=== PATIENT | female | born 2000 | race Caucasian/White ===

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

== ENCOUNTER 2022-05-12 20:53 | Emergency (ER) | payer BC ==
--- OUTSIDE RECORDS SUMMARY | 2022-05-12 20:57 | XMS REPORT | Continuity of Care Document ---
:2000 Author Organization [facility] t Address [address] [place] [address] Care Team Providers Name Role Phone Kailey Peterson Primary Care Physician Jeremy Peralta MD Attending Clinician JEREMY PERALTA Attending Clinician Unavailable Doctor Unassigned, [place] Attending Clinician Unavailable Payers Payer Name Policy Type Policy Number Effective Date Expiration Date S ource Problems Condition Condition Condition Status Onset Resolution Last Treating Co mments Source Name Details Category Date Date Treatment Clinician Date Abnormal Abnormal Disease Active Unive rs weight weight 4-30 ity of gain gain 00:00: [place] 00 Medical Branch Overweight Overweight Disease Active U nivers peds (BMI peds (BMI 4-30 ity of 85-94.9 85-94.9 00:00: [place] percentile percentile 00 Me dical ) ) Branch Allergies, Adverse Reactions, Alerts Allergy Allergy Status Severity Reaction(s) Onset Inactive Treating Comm ents Source Name Type Date Date Clinician CEFACLOR DRUG Active Hives 2014-06 Univers INGREDI 2-15 ity of 00:00: [place] 00 Medical Branch Cefaclor Propensi Active Hives 2014-06 Univer s ty to 2-15 ity of adverse 00:00: [place] reaction 00 Medical s Branch Social History Social Habit Start Date Stop Date Quantity Comments Source Exposure to Not sure [facility] SARS-CoV-2 (event) Medica l Branch Tobacco use and 2021-02-22 2021-02-22 Never used [facility] [place] exposure 00:00:00 00:00:00 Medical Branch Sex Assigned At [birth year] [facility] 00:00:00 00:00:00 Medical Branch Smoking Status Start Date Stop Date Source Unknown if ever smoked [facility] Branch Never smoker [facility] Medications Ordered Filled Start Stop Current Ordering Indication Dosage Frequency Signature Comments Components Source Medication Medication Date Date Medication? Clinician (SIG) Name Name tony Yes [id number] 4[drp] Place 4 Univers in-dexameth -03 Drops in ity of asone 00:00: right ear [place] 0.3-0.1 % 00 2 (two) Medical otic drops times Branch daily. azelastine Yes [id number] 1{spray Use 1 Univers 137 mcg 02-22 } [place] in ity of (0.1 %) 00:00: each [place] nasal spray 00 nostril 2 Med ical (two) Branch times daily. Use in each nostril as directed dexmethylph 2017-0 Yes 10mg Take 10 mg Univers enidate 10 3-13 by mouth 2 ity of mg tablet 00:00: (two) [place] 00 times Medical daily. Branch SERTraline 0 Yes 25mg Take 25 mg U nivers 25 mg 3-13 by mouth ity of tablet 00:00: daily. [place] [facility] Branch dexmethylph 2018-0 Yes 10mg Take 10 mg Univers enidate 10 3-13 by mouth 2 ity of mg tablet 00:00: (two) [place] 00 times Medical daily. Branch SERTraline 2018-0 Yes 25mg Take 25 mg U nivers 25 mg 3-13 by mouth ity of tablet 00:00: daily. [place] [facility] Branch dexmethylph 2018-0 Yes 10mg Take 10 mg Univers enidate 10 3-13 by mouth 2 ity of mg tablet 00:00: (two) [place] 00 times Medical daily. Branch SERTraline 2018-0 Yes 25mg Take 25 mg U nivers 25 mg 3-13 by mouth ity of tablet 00:00: daily. [place] [facility] Branch dexmethylph 2018-0 Yes 10mg Take 10 mg Univers enidate 10 3-13 by mouth 2 ity of mg tablet 00:00: (two) [place] 00 times Medical daily. Branch SERTraline 2018-0 Yes 25mg Take 25 mg U nivers 25 mg 3-13 by mouth ity of tablet 00:00: daily. [address] dexmethylph 2018-0 Yes 10mg Take 10 mg Univers enidate 10 3-13 by mouth 2 ity of mg tablet 00:00: (two) [place] [id number] times Medical daily. Branch SERTraline 2017-0 Yes 25mg Take 25 mg U nivers 25 mg 3-13 by mouth ity of tablet 00:00: daily. [address] Vital Signs Vital Name Observation Time Observation Value Comments Source Systolic blood 2021-02-22 22:37:00 106 mm[Hg] Univer sity of pressure [facility] Diastolic blood 2021-02-22 22:37:00 71 mm[Hg] Unive rsity of [facility] Heart rate 2021-02-22 22:37:00 75 /min [facility] Body temperature 2021-02-22 22:37:00 36.72 [facility] Body height 2021-02-22 22:37:00 154.9 cm [facility] Body weight 2021-02-22 22:37:00 74.163 kg [facility] BMI 2021-02-22 22:37:00 30.89 kg/m2 [facility] Oxygen saturation in 2021-02-22 22:37:00 98 /min [facility] Arterial blood by [facility] Pulse oximetry Branch Procedures This patient has no known procedures. Encounters Start End Encounter Admission Attending Care Care Encounter Source Date/Time Date/Time Type Type Clinicians Facility Department ID 2021-02-22 2021-02-22 Lucian Peralta DEJASE [id number] Univers 17:27:58 17:54:14 Care Online Prasad [id number] it y of [place] [id number] Henri as Jc?Blea [phone] [place] [address] [facility] 2021-02-22 2021-02-22 Outpatient R FABIAN [facility] [id number] Univers 17:20:00 17:20:00 JEREMY [facility] 2021-02-22 2021-02-22 Letter Doctor AGUILAR [id number] Univers 00:00:00 00:00:00 (Out) Unassigned, VALERY [id number] ity of [place] [facility] [id number] Henri as [id number] [place] [address] Branch 2021-02-22 2021-02-22 Letter Doctor JEFF [id number] Univers 00:00:00 00:00:00 (Out) Unassigned, VALERY [id number] ity of [place] [facility] [id number] Henri as [phone] [place] [address] Branch Results This patient has no known results.
--- NOTE | 2022-05-12 21:55 | EDPHYS ---
Physician Documentation [facility] Name: Raymundo Bernabe Age: 21 yrs Sex: Female : 2000 Arrival Date: 05/12/2022 Time: 20:57 Bed 5 Private MD: ED Physician Santhosh Padilla HPI: 05/12 21:50 This 21 yrs old Female presents to ER via Ambulatory with complaints of Numbness Of cp Face, RT side, Eye Pain. 21:50 The patient's problem is reported as a facial droop, on right, paresthesias, in right cp side of face. Onset: The symptoms/episode began/occurred today, noticed about 3 pm. Duration: The episode is continuous. Context: the episode(s) was witnessed, by a significant other. Associated signs and symptoms: Pertinent positives: right eye discomfort, feels "dry". Patient's baseline: Neuro: alert and fully oriented, Motor: no deficits, Ambulation: walks without assistance, Speech: normal. Historical: - Allergies: 21:29 Ceclor; vc1 - Home Meds: 21:29 trazodone 50 mg Oral tab 1 tab nightly [Active]; duloxetine 30 mg oral CDRS 1 cap once vc1 daily [Active]; - PMHx: 21:29 scoliosis; ADHD; Depressive disorder; Anxiety; vc1 - PSHx: 21:29 None; vc1 - Immunization history:: Client reports having NOT received the Covid vaccine. - Social history:: Smoking status: Patient denies any tobacco usage or history of. ROS: 21:50 Constitutional: Negative for body aches, chills, fever, poor PO intake. cp 21:50 Eyes: Positive for of the right eye, "dryness", discomfort, Negative for discharge, cp redness. 21:50 ENT: Negative for drainage from ear(s), ear pain, sore throat, difficulty swallowing, difficulty handling secretions. 21:50 Cardiovascular: Negative for chest pain, edema, palpitations. 21:50 Respiratory: Negative for cough, shortness of breath, wheezing. 21:50 Abdomen/GI: Negative for abdominal pain, nausea, vomiting, and diarrhea. 21:50 Skin: Negative for rash. 21:50 Neuro: Positive for numbness, of the right side of face, Negative for altered mental status, headache. 21:50 All other systems are negative. Exam: 21:52 Constitutional: This is a well developed, well nourished patient who is awake, alert, cp and in no acute distress. 21:52 Head/face: Normocephalic, loss of facial line right side of forehead, right drooping eyelid and corner of mouth. 21:52 Eyes: Periorbital structures: appear normal, Pupils: equal, round, and reactive to cp light and accomodation, Extraocular movements: intact throughout, Conjunctiva: normal, no exudate, no injection, Sclera: no appreciated abnormality, Lids and lashes: no evidence of trauma, Visual hendrickson: are intact. 21:52 ENT: External ear(s): are unremarkable, Ear canal(s): are normal, clear, TM's: dullness, bilaterally, Nose: is normal, Mouth: Lips: moist, Oral mucosa: pink and intact, moist, Posterior pharynx: Airway: no evidence of obstruction, patent, Tonsils: are normal in appearance, swelling, is not appreciated, erythema, is not appreciated, exudate, is not appreciated. 21:52 Neck: ROM/movement: is normal, is supple, without pain, no range of motions limitations. 21:52 Chest/axilla: Inspection: normal. 21:52 Cardiovascular: Rate: normal, Rhythm: regular. 21:52 Respiratory: the patient does not display signs of respiratory distress, Respirations: normal, no use of accessory muscles, no retractions, labored breathing, is not present, Breath sounds: are clear throughout, no decreased breath sounds. 21:52 Abdomen/GI: Exam negative for discomfort, distension, guarding, Inspection: abdomen appears normal. 21:52 Skin: no rash present. cp 21:52 Neuro: Orientation: to person, place \\T\\ time. Mentation: is normal, Motor: moves all fours, strength is normal, Sensation: numbness, that is moderate, of the right side of face, Gait: is steady, at a normal pace, without difficulty. 21:52 CT study not indicated or reported. Reason for not performing CT: not medically cp necessary Vital Signs: 21:26 BP 134 / 92; Pulse 92; Resp 17; Temp 98.1; Pulse Ox 99% on R/A; Weight 81.65 kg; Height vc1 5 ft. 1 in. (154.94 cm); Pain 0/10; 21:26 Body Mass Index 34.01 (81.65 kg, 154.94 cm) vc1 MDM: 21:18 Patient medically screened. [facility] 21:54 Data reviewed: vital signs, nurses notes. cp 21:54 Differential diagnosis: CVA, TIA, paralysis, metabolic disorder, drug effects. cp Counseling: I had a detailed discussion with the patient and/or guardian regarding: the historical points, exam findings, and any diagnostic results supporting the discharge/admit diagnosis, the need for outpatient follow up, a neurologist, to return to the emergency department if symptoms worsen or persist or if there are any questions or concerns that arise at home. 05/12 21:56 Order name: Urine --Ancillary (enter results) [facility] 05/12 21:57 Order name: Urine Dipstick-Ancillary [facility] 05/12 21:46 Order name: Urine Test (obtain specimen); Complete Time: 21:56 cp 05/12 21:46 Order name: Urine Dipstick-Ancillary (obtain specimen); Complete Time: 21:56 cp Administered Medications: No medications were administered Disposition Summary: 05/12/22 21:54 Discharge Ordered Location: Home cp Problem: new cp Symptoms: are unchanged cp Condition: Stable cp Diagnosis - Luna's palsy cp Followup: cp - With: Ganesh Ramachandran MD - When: 2 - 3 days - Reason: Recheck today's complaints Discharge Instructions: - Discharge Summary Sheet cp - Luna Palsy, Adult cp Forms: - Medication Reconciliation Form cp - Thank You Letter cp - Antibiotic Education cp - Prescription Opioid Use cp Prescriptions: - Prednisone 20 mg Oral Tablet - take 3 tablets by ORAL route once daily for 10 days then take 2 tabs daily for cp 3 days and then 1 tab daily for 2 days; 23 tablet; Refills: 0, Product Selection Permitted - Acyclovir 400 mg Oral Tablet - take 1 tablet by ORAL route every 8 hours for 10 days; 50 tablet; Refills: 0, cp Product Selection Permitted - Artificial Eye Lubricant - apply 1 application by OPHTHALMIC route every 2-4 hours As needed; 1 bottle; cp Refills: 0, Product Selection Permitted Signatures: Dispatcher [employer] EDMS Randy, Santhosh, MD MD sarah Page, Santhosh, PA PA cp Calcote, Lilia, RN RN vc1 Corrections: (The following items were deleted from the chart) 05/13 20:06 05/12 21:52 Head/face: Noted is cp cp
--- NOTE | 2022-05-12 21:55 | ER ---
Nurse's Notes [facility] Name: Raymundo Bernabe Age: 21 yrs Sex: Female : 2000 Arrival Date: 05/12/2022 Time: 20:57 Bed 5 Private MD: Diagnosis: Luna's palsy Presentation: 05/12 21:26 Chief complaint: Patient states: "We took a shower around 3 and noticed one side of my vc1 face wasn't moving like the other. Also my right eye is hurting but I think it is because it is dry.". Coronavirus screen: Vaccine status: Patient reports being unvaccinated. Ebola Screen: No symptoms or risks identified at this time. Mechanism of Injury: No Mechanism of Injury. The patient denies any loss of vision. Initial Sepsis Screen: Does the patient meet any 2 criteria? No. Patient's initial sepsis screen is negative. Does the patient have a suspected source of infection? No. Patient's initial sepsis screen is negative. Risk Assessment: Do you want to hurt yourself or someone else? Patient reports no desire to harm self or others. Onset of symptoms was May 12, 2022 at 15:00. 21:26 Method Of Arrival: Ambulatory vc1 21:26 Acuity: GHAZAL 5 vc1 Historical: - Allergies: 21:29 Ceclor; vc1 - Home Meds: 21:29 trazodone 50 mg Oral tab 1 tab nightly [Active]; duloxetine 30 mg oral CDRS 1 cap once vc1 daily [Active]; - PMHx: 21:29 scoliosis; ADHD; Depressive disorder; Anxiety; vc1 - PSHx: 21:29 None; vc1 - Immunization history:: Client reports having NOT received the Covid vaccine. - Social history:: Smoking status: Patient denies any tobacco usage or history of. Screenin:03 Abuse screen: Denies threats or abuse. Denies injuries from another. Nutritional as6 screening: No deficits noted. Tuberculosis screening: No symptoms or risk factors identified. Fall Risk None identified. Assessment: 22:04 General: Appears in no apparent distress. Behavior is calm, cooperative. Pain: Denies as6 pain. Respiratory: Respiratory effort is even, unlabored. EENT: Eyes tearing and left eye droop noted . Vital Signs: 21:26 BP 134 / 92; Pulse 92; Resp 17; Temp 98.1; Pulse Ox 99% on R/A; Weight 81.65 kg; Height vc1 5 ft. 1 in. (154.94 cm); Pain 0/10; 21:26 Body Mass Index 34.01 (81.65 kg, 154.94 cm) vc1 ED Course: 20:57 Patient arrived in ED. bp1 21:05 Santhosh Gomez PA is PHCP. cp 21:05 Santhosh Padilla MD is Attending Physician. cp 21:29 Triage completed. vc1 21:29 Henry Galvez, RN is Primary Nurse. as6 21:54 Ganesh Ramachandran MD is Referral Physician. cp 22:03 Arm band placed on. as6 22:03 Bed in low position. Call light in reach. as6 22:04 No provider procedures requiring assistance completed. Patient did not have IV access as6 during this emergency room visit. Administered Medications: No medications were administered Medication: 22:05 VIS not applicable for this client. as6 Outcome: 21:54 Discharge ordered by MD. cp 22:04 Discharged to home ambulatory. as6 22:04 Condition: stable 22:04 Discharge instructions given to patient, Instructed on discharge instructions, follow up and referral plans. Demonstrated understanding of instructions, follow-up care. 22:05 Patient left the ED. as6 Signatures: Santhosh Gomez PA PA cp [place], Britt[facility] Henry Galvez, RN RN as6 Lilia Diana RN RN vc1
[2022-05-12 21:56] LABS: Urine Blood Negative (Negative); Urine Glucose Negative (Negative); Urine Protein Negative (Negative); Urine Specific Gravity >=1.030 (1.005-1.030); Urine pH 5.5 (5.0-7.0)
[2022-05-12 22:59] VITALS: BP 134/92; TEMP 98.1; O2SAT 99
[2022-05-12 23:14] LABS: Urine Specific Gravity/Preg >1.030 (1.005-1.030)
== END 2022-05-12 22:05 | disposition home or self-care (01) ==
LOC: ER 20:53
DX: G51.0 Bell's palsy (principal); Z88.8 Allergy status to other drugs, medicaments and biological substances
CPT/HCPCS: 81003; 81025; 99281

== ENCOUNTER 2023-01-30 03:28 | Emergency (ER) | payer BC ==
--- OUTSIDE RECORDS SUMMARY | 2023-01-30 03:31 | XMS REPORT | Continuity of Care Document ---
:2000 Author Organization [facility] t Address [address] [place] [address] Care Team Providers Name Role Phone Celia Petersonnifer Primary Care Physician Jeremy Peralta MD Attending Clinician JEREMY PERALTA Attending Clinician Unavailable Doctor Unassigned, [place] Attending Clinician Unavailable Payers Payer Name Policy [...] Quantity Comments Source Exposure to Not sure [facility] SARS-CoV-2 (event) Medica l Branch Tobacco use and 2021-02-22 2021-02-22 Never used [facility] [place] exposure 00:00:00 00:00:00 Medical Branch Sex Assigned At [birth year] [facility] 00:00:00 00:00:00 Medical Branch Smoking Status Start Date Stop Date Source Unknown if ever smoked [facility] Branch Never smoker [facility] Medications Ordered Filled Start Stop Current Ordering Indication Dosage Frequency Signature Comments Components Source Medication Medication Date Date Medication? Clinician (SIG) Name Name tony Yes [id number] 4[drp] Place 4 Univers in-dexameth -03 Drops in ity of asone 00:00: right ear [place] 0.3-0.1 % 00 2 (two) Medical otic drops times Branch daily. azelastine Yes [id number] 1{spray Use 1 Univers 137 mcg 02-22 } [place] in ity of (0.1 %) 00:00: each [place] nasal spray 00 nostril 2 Med ical (two) Branch times daily. Use in each nostril as directed dexmethylph 2017-0 Yes 10mg Take 10 mg Univers enidate 10 3-13 by mouth 2 ity of mg tablet 00:00: (two) [place] 00 times Medical daily. Branch SERTraline 0 Yes 25mg Take 25 mg U nivers 25 mg 3-13 by mouth ity of tablet 00:00: daily. [place] [facility] Branch dexmethylph 2018-0 Yes 10mg Take 10 mg Univers enidate 10 3-13 by mouth 2 ity of mg tablet 00:00: (two) [place] 00 times Medical daily. Branch SERTraline 2018-0 Yes 25mg Take 25 mg U nivers 25 mg 3-13 by mouth ity of tablet 00:00: daily. [place] [facility] Branch dexmethylph 2018-0 Yes 10mg Take 10 mg Univers enidate 10 3-13 by mouth 2 ity of mg tablet 00:00: (two) [place] 00 times Medical daily. Branch SERTraline 2018-0 Yes 25mg Take 25 mg U nivers 25 mg 3-13 by mouth ity of tablet 00:00: daily. [place] [facility] Branch dexmethylph 2018-0 Yes 10mg Take 10 mg Univers enidate 10 3-13 by mouth 2 ity of mg tablet 00:00: (two) [place] 00 times Medical daily. Branch SERTraline 2018-0 Yes 25mg Take 25 mg U nivers 25 mg 3-13 by mouth ity of tablet 00:00: daily. [address] dexmethylph 2018-0 Yes 10mg Take 10 mg Univers enidate 10 3-13 by mouth 2 ity of mg tablet 00:00: (two) [place] [id number] times Medical daily. Branch SERTraline 2017-0 Yes 25mg Take 25 mg U nivers 25 mg 3-13 by mouth ity of tablet 00:00: daily. [address] Vital Signs Vital Name Observation Time Observation Value Comments Source Systolic blood 2021-02-22 22:37:00 106 mm[Hg] Univer sity of pressure [facility] Diastolic blood 2021-02-22 22:37:00 71 mm[Hg] Unive rsity of [facility] Heart rate 2021-02-22 22:37:00 75 /min [facility] Body temperature 2021-02-22 22:37:00 36.72 [facility]issa [facility] height 2021-02-22 22:37:00 154.9 cm [facility] Body weight 2021-02-22 22:37:00 74.163 kg [facility] BMI 2021-02-22 22:37:00 30.89 kg/m2 [facility] Oxygen saturation in 2021-02-22 22:37:00 98 /min [facility] Arterial blood by [facility] Pulse oximetry Branch Procedures This patient has no known procedures. Encounters Start End Encounter Admission Attending Care Care Encounter Source Date/Time Date/Time Type Type Clinicians Facility Department ID 2021-02-22 2021-02-22 Lucian Peralta MIJASE [id number] Univers 17:27:58 17:54:14 Care [facility] [id number] it y of [place] [id number] Henri as Jc?Blea [id number] [address] [facility] 2021-02-22 2021-02-22 Outpatient R FABIAN [facility] [id number] Univers 17:20:00 17:20:00 JEREMY [facility] 2021-02-22 2021-02-22 Letter Doctor AGUILAR [id number] Univers 00:00:00 00:00:00 (Out) Unassigned, VALERY [id number] ity of [place] [facility] [id number] Henri as [phone] [place] [address] Branch 2021-02-22 2021-02-22 Letter Doctor JEFF [id number] Univers 00:00:00 00:00:00 (Out) Unassigned, VALERY [id number] ity of [facility] [id number] Henri as [phone] [place] [address] Branch Results This patient has no known results.
--- NOTE | 2023-01-30 04:12 | ER ---
Nurse's Notes [facility] Name: Raymundo Bernabe Age: 22 yrs Sex: Female : 2000 Arrival Date: 01/30/2023 Time: 03:28 Bed 15 Private MD: Diagnosis: Nausea with vomiting, unspecified;Dizziness and giddiness Presentation: 01/30 03:40 Chief complaint: Patient states: weakness and dizziness began at 11 pm. Coronavirus kl screen: Vaccine status: Patient reports being unvaccinated. Ebola Screen: Patient negative for fever greater than or equal to 101.5 degrees Fahrenheit, and additional compatible Ebola Virus Disease symptoms. Initial Sepsis Screen: Does the patient meet any 2 criteria? No. Patient's initial sepsis screen is negative. Does the patient have a suspected source of infection? No. Patient's initial sepsis screen is negative. Risk Assessment: Do you want to hurt yourself or someone else? Patient reports no desire to harm self or others. Onset of symptoms was January 29, 2023 at 23:00. 03:40 Method Of Arrival: Ambulatory 03:40 Acuity: GHAZAL 3 kl Triage Assessment: 03:44 General: Appears in no apparent distress. Behavior is cooperative. Pain: Denies pain. kl GI: Reports nausea. Historical: - Allergies: 03:43 Ceclor; kl 03:43 Zyrtec; kl - PMHx: 03:43 adhd; Anxiety; depressive disorder; scoliosis; kl - Immunization history:: Adult Immunizations not immunized. - Social history:: Smoking status: Patient denies any tobacco usage or history of. Screenin:31 [facility] ED Fall Risk Assessment (Adult) History of falling in the last 3 months, ha1 including since admission No falls in past 3 months (0 pts) Confusion or Disorientation No (0 pts) Intoxicated or Sedated No (0 pts) Impaired Gait No (0 pts) Mobility Assist Device Used No (0 pt) Altered Elimination No (0 pt) Score/Fall Risk Level 0 - 2 = Low Risk Oriented to surroundings, Maintained a safe environment, Educated pt \T\ family on fall prevention, incl call for assistance when getting out of bed, Hourly rounding (assess needs \T\ fall precautionary measures) done. Abuse screen: Denies threats or abuse. Denies injuries from another. Nutritional screening: No deficits noted. Tuberculosis screening: No symptoms or risk factors identified. Assessment: 03:44 General: Appears comfortable, Behavior is calm, cooperative. Pain: Denies pain. Neuro: ha1 Level of Consciousness is awake, alert, obeys commands, Oriented to person, place, time, situation. Neuro: Reports weakness generalized. Cardiovascular: Patient's skin is warm and dry. Respiratory: Airway is patent Respiratory effort is even, unlabored, Respiratory pattern is regular, symmetrical. GI: Abdomen is round non-distended, Bowel sounds present X 4 quads. Reports nausea. Musculoskeletal: Circulation, motion, and sensation intact. Range of motion:. 04:30 Reassessment: Patient and/or family updated on plan of care and expected duration. Pain ha1 level reassessed. Patient is alert, oriented x 3, equal unlabored respirations, skin warm/dry/pink. 04:50 Reassessment: awaiting on urine results. 1 Vital Signs: 03:40 BP 131 / 96; Pulse 63; Resp 18; Temp 98.2(O); Pulse Ox 100% ; Weight 90.72 kg (R); Height 5 ft. 4 in. ; 03:55 BP 120 / 86 Supine; Pulse 61; Resp 17 S; Pulse Ox 100% on R/A; ha1 04:00 BP 120 / 74 Sitting; Pulse 61; Resp 15 S; Pulse Ox 100% ; ha1 04:03 BP 122 / 79 Standing; Pulse 68; Resp 16 S; Pulse Ox 100% on R/A; ha1 04:50 BP 99 / 75; Pulse 59; Resp 16 S; Pulse Ox 97% on R/A; ha1 03:40 Body Mass Index 34.33 (90.72 kg, 162.56 cm) ED Course: 03:29 Patient arrived in ED. [email or web address] 03:31 Santhosh Padilla MD is Attending Physician. [facility] 03:31 Allergy band placed. Bed in low position. Call light in reach. Side rails up X 1. ha1 03:31 Arm band placed on right wrist. 1 03:43 Triage completed. 03:44 Laura Mccormick RN is Primary Nurse. ha1 04:23 PREGU Sent. ha1 04:24 Urinalysis w/ reflexes Sent. ha1 05:05 Provided Education on: follow ups. ha1 05:05 No provider procedures requiring assistance completed. Patient did not have IV access ha1 during this emergency room visit. Administered Medications: 04:12 Drug: Ondansetron PO 4 mg Route: PO; ha1 04:23 Follow up: Response: No adverse reaction; Nausea is decreased ha1 Medication: 03:47 VIS not applicable for this client. ha1 Outcome: 04:11 Discharge ordered by . sarah 05:05 Discharged to home ambulatory. ha1 05:05 Condition: stable 05:05 Discharge instructions given to patient, Instructed on discharge instructions, follow up and referral plans. medication usage, Demonstrated understanding of instructions, follow-up care, medications, Prescriptions given X 1. 05:08 Patient left the ED. ha1 Signatures: Jessica London, RN Santhosh Joseph MD MD cha Jeffries, Jennifer [email or web address] Laura Mccormick RN RN ha1
--- NOTE | 2023-01-30 04:12 | EDPHYS ---
Physician Documentation [facility] Name: Raymundo Bernabe Age: 22 yrs Sex: Female : 2000 Arrival Date: 01/30/2023 Time: 03:28 Bed 15 Private MD: PRANAY Physician Santhosh Padilla HPI: 01/30 04:06 This 22 yrs old Female presents to ER via Ambulatory with complaints of sarah Nausea/Vomiting, General Weakness, Dizziness. 04:06 The patient presents to the emergency department with nausea, vomiting, that is sarah intermittent. Onset: The symptoms/episode began/occurred 2 day(s) ago. Possible causes: unknown. The symptoms are aggravated by nothing. The symptoms are alleviated by nothing. Associated signs and symptoms: Pertinent positives: nausea, vomiting. Severity of symptoms: At their worst the symptoms were mild in the emergency department the symptoms are unchanged. The patient has experienced similar episodes in the past, a few times. Historical: - Allergies: 03:43 Ceclor; kl 03:43 Zyrtec; kl - PMHx: 03:43 adhd; Anxiety; depressive disorder; scoliosis; kl - Immunization history:: Adult Immunizations not immunized. - Social history:: Smoking status: Patient denies any tobacco usage or history of. ROS: 04:08 Constitutional: Negative for fever, chills, and weight loss, Eyes: Negative for injury, sarah pain, redness, and discharge, ENT: Negative for injury, pain, and discharge, Neck: Negative for injury, pain, and swelling, Cardiovascular: Negative for chest pain, palpitations, and edema, Respiratory: Negative for shortness of breath, cough, wheezing, and pleuritic chest pain, Back: Negative for injury and pain, : Negative for injury, bleeding, discharge, and swelling, MS/Extremity: Negative for injury and deformity, Skin: Negative for injury, rash, and discoloration, Psych: Negative for depression, anxiety, suicide ideation, homicidal ideation, and hallucinations, Allergy/Immunology: Negative for hives, rash, and allergies, Endocrine: Negative for neck swelling, polydipsia, polyuria, polyphagia, and marked weight changes, Hematologic/Lymphatic: Negative for swollen nodes, abnormal bleeding, and unusual bruising. 04:08 Abdomen/GI: Positive for nausea, vomiting. 04:08 Neuro: Positive for dizziness. Exam: 04:08 Constitutional: This is a well developed, well nourished patient who is awake, alert, sarah and in no acute distress. Head/Face: Normocephalic, atraumatic. Eyes: Pupils equal round and reactive to light, extra-ocular motions intact. Lids and lashes normal. Conjunctiva and sclera are non-icteric and not injected. Cornea within normal limits. Periorbital areas with no swelling, redness, or edema. ENT: Nares patent. No nasal discharge, no septal abnormalities noted. Tympanic membranes are normal and external auditory canals are clear. Oropharynx with no redness, swelling, or masses, exudates, or evidence of obstruction, uvula midline. Mucous membranes moist. Neck: Trachea midline, no thyromegaly or masses palpated, and no cervical lymphadenopathy. Supple, full range of motion without nuchal rigidity, or vertebral point tenderness. No Meningismus. Chest/axilla: Normal chest wall appearance and motion. Nontender with no deformity. No lesions are appreciated. Cardiovascular: Regular rate and rhythm with a normal S1 and S2. No gallops, murmurs, or rubs. Normal PMI, no JVD. No pulse deficits. Respiratory: Lungs have equal breath sounds bilaterally, clear to auscultation and percussion. No rales, rhonchi or wheezes noted. No increased work of breathing, no retractions or nasal flaring. Abdomen/GI: Soft, non-tender, with normal bowel sounds. No distension or tympany. No guarding or rebound. No evidence of tenderness throughout. Back: No spinal tenderness. No costovertebral tenderness. Full range of motion. Skin: Warm, dry with normal turgor. Normal color with no rashes, no lesions, and no evidence of cellulitis. MS/ Extremity: Pulses equal, no cyanosis. Neurovascular intact. Full, normal range of motion. Neuro: Awake and alert, GCS 15, oriented to person, place, time, and situation. Cranial nerves II-XII grossly intact. Motor strength 5/5 in all extremities. Sensory grossly intact. Cerebellar exam normal. Normal gait. Psych: Awake, alert, with orientation to person, place and time. Behavior, mood, and affect are within normal limits. Vital Signs: 03:40 BP 131 / 96; Pulse 63; Resp 18; Temp 98.2(O); Pulse Ox 100% ; Weight 90.72 kg (R); kl Height 5 ft. 4 in. ; 03:55 BP 120 / 86 Supine; Pulse 61; Resp 17 S; Pulse Ox 100% on R/A; ha1 04:00 BP 120 / 74 Sitting; Pulse 61; Resp 15 S; Pulse Ox 100% ; ha1 04:03 BP 122 / 79 Standing; Pulse 68; Resp 16 S; Pulse Ox 100% on R/A; ha1 04:50 BP 99 / 75; Pulse 59; Resp 16 S; Pulse Ox 97% on R/A; ha1 03:40 Body Mass Index 34.33 (90.72 kg, 162.56 cm) kl MDM: 03:31 Patient medically screened. sarah 04:09 Differential diagnosis: gastritis, viral gastroenteritis, gastroenteritis. Differential sarah diagnosis: generalized weakness, hypovolemia, idiopathic dizziness, . Data reviewed: vital signs, nurses notes, lab test result(s), urinalysis. Consideration of Admission/Observation Escalation of care including admission/observation considered. I considered the following discharge prescriptions or medication management in the emergency department Medications were administered in the Emergency Department. See MAR. Test considered but Not performed: Labs: no labs. Historians other than the Patient: npne. Care significantly affected by the following chronic conditions: scoliosis. Counseling: I had a detailed discussion with the patient and/or guardian regarding: the historical points, exam findings, and any diagnostic results supporting the discharge/admit diagnosis, lab results, the need for outpatient follow up, for definitive care, a family practitioner. 01/30 04:06 Order name: Urinalysis w/ reflexes sarah 01/30 04:06 Order name: PREGU sarah 01/30 04:06 Order name: Orthostatics; Complete Time: 04:23 sarah 01/30 04:06 Order name: PO challenge; Complete Time: 04:17 sarah Administered Medications: 04:12 Drug: Ondansetron PO 4 mg Route: PO; ha1 04:23 Follow up: Response: No adverse reaction; Nausea is decreased ha1 Disposition Summary: 01/30/23 04:11 Discharge Ordered Location: Home sarah Problem: new sarah Symptoms: have improved sarah Condition: Stable sarah Diagnosis - Nausea with vomiting, unspecified sarah - Dizziness and giddiness sarah Followup: sarah - With: Private Physician - When: 2 - 3 days - Reason: Recheck today's complaints, Continuance of care, Re-evaluation by your physician Discharge Instructions: - Discharge Summary Sheet sarah - Dizziness sarah - Nausea and Vomiting, Adult sarah - Nausea and Vomiting, Adult, [id number] sarah Forms: - Work release form sarah - Medication Reconciliation Form sarah - Thank You Letter sarah - Antibiotic Education sarah - Prescription Opioid Use sarah - Patient Portal Instructions sarah Prescriptions: - ondansetron 4 mg Oral Tablet,disintegrating - take 1 tablet by ORAL route 3 times per day for 5 days; 20 tablet; Refills: 0, sarah Product Selection Permitted Signatures: Dispatcher [employer] Jessica Navarro RN RN kl Anderson, Corey, MD MD cha Ayala, Heidy RN RN ha1
[2023-01-30] MEDS ORDERED: ONDANSETRON 4 MG (ODT) TAB ONE (04:25)
[2023-01-30 04:56] LABS: Renal Epithelial <5 /HPF (None Seen); Specific Gravity 1.006 (1.005-1.030); Urine Bacteria None Seen /HPF (<20); Urine Bilirubin NEGATIVE (Negative); Urine Blood 3+ (OVER) (Negative); Urine Clarity Turbid (Clear); Urine Color Colorless (Yellow); Urine Glucose NEGATIVE (Negative); Urine Protein NEGATIVE (Negative); Urine Urobilinogen Normal (Normal)
[2023-01-30 05:02] LABS: Specific Gravity 1.006 (1.005-1.030)
[2023-01-30 05:13] VITALS: TEMP 98.2
[2023-01-30 05:18] VITALS: BP 99/75; O2SAT 97
== END 2023-01-30 05:08 | disposition home or self-care (01) ==
LOC: ER 03:28
DX: R11.2 Nausea with vomiting, unspecified (principal); R42 Dizziness and giddiness; Z88.8 Allergy status to other drugs, medicaments and biological substances
CPT/HCPCS: 81001; 81025; 99284; Q0162